=== PATIENT | male | born 1990 | race Asian ===

== ENCOUNTER → 2022-09-15 | Outpatient (CLI) | payer BC ==
--- NOTE | 2022-09-15 11:41 | MR ---
EXAMINATION TYPE: MR lumbar spine wo/w con DATE OF EXAM: 09/15/2022 COMPARISON: Outside institution MRI lumbar spine 06/01/2022, lumbar spine radiograph 08/07/2022. HISTORY: Low back pain x 9 months, Pain in buttocks into letha lower extremities TECHNIQUE: Multiplanar, multisequence images of the lumbar spine were acquired without and with 13 mL intravenou s Gadavist gadolinium contrast. Lumbar segments are intact. No paraspinal masses are identified. Conus medullaris has a normal appe arance. No abnormal contrast enhancement. L1-L2: Normal disc appearance without desiccation. No herniation, protrusion or disc bulging. No ca nal stenosis is present. Foramina are patent bilaterally. L2-L3: No disc desiccation. Broad-based disc bulge with mild effacement of the anterior thecal sac re demonstrated. No canal stenosis is present. Foramina are patent bilaterally. L3-L4: No disc desiccation. Central disc herniation with caudal extrusion of 3 mm redemonstrated with moderate effacement of the anterior thecal sac. Foramina are patent bilaterally. L4-L5: Disc desiccation is present. Broad-based disc bulge with minimal effacement of the anterior th ecal sac. Foramina are patent bilaterally. L5-S1: Disc desiccation is present. No herniation, protrusion or disc bulging. No canal stenosis is present. Foramina are patent bilaterally. IMPRESSION: 1. Similar L3-L4 central disc herniation with caudal extrusion of 3 mm resulting in moderate central canal stenosis. 2. Similar mild multilevel degenerative disc disease as described above.
== END | disposition home or self-care (01) ==
LOC: RADMRIMAIN 10:27
PROVIDERS: ATTEND Orthopaedic Surgery
DX: M51.26 Other intervertebral disc displacement, lumbar region (principal); M51.36 Other intervertebral disc degeneration, lumbar region; M48.061 Spinal stenosis, lumbar region without neurogenic claudication
CPT/HCPCS: 72158; A9585

== ENCOUNTER → 2022-10-02 | Outpatient (CLI) | payer BC ==
[2022-10-02 15:29] LABS: Basophils # (A) 0.01 X 10*3/uL (0.00-0.10); Basophils % (A) 0.1 %; Eosinophils % (A) 1.3 %; HCT 45.3 % (39.6-50.0); HGB 15.4 g/dL (13.0-17.0); Immature Grans, Automated 0.4 %; Lymphocytes # (A) 2.26 X 10*3/uL (0.90-5.00); Lymphocytes % (A) 28.5 %; MCH 29.2 pg (27.0-32.0); MCV 85.8 fL (80.0-97.0); Mean Platelet Volume 11.6 fL (9.5-12.2); Monocytes % (A) 6.3 %; NRBC Per 100 WBC 0 /100 WBCS (0.0-0.0); Neutrophils # (A) 5.02 X 10*3/uL (1.80-7.70); Neutrophils % (A) 63.4 %; Platelet Count 217 X 10*3/uL (140-440); RBC 5.28 X 10*6/uL (4.40-5.60); RDW 13.2 % (11.5-14.5); WBC 7.92 X 10*3/uL (4.50-10.00)
[2022-10-02 15:46] LABS: INR 0.91 (0.90-1.11); Prothrombin Time 10.3 sec (9.9-11.9)
[2022-10-02 16:04] LABS: African American GFR (CKD) 145.1 (60.0-200.0); Anion Gap 13.9 mmol/L (10.00-18.00); BUN/Creat Ratio 18.5 Ratio (12.00-20.00); Blood Urea Nitrogen 13.1 mg/dL (9.0-27.0); Calcium 10.1 mg/dL (8.7-10.3); Carbon Dioxide 25.5 mmol/L (20.0-27.5); Non-African American GFR(CKD) 125.2 (60.0-200.0); Potassium 4.4 mmol/L (3.5-5.5)
== END | disposition home or self-care (01) ==
LOC: LABPAT 10:19
PROVIDERS: ATTEND Orthopaedic Surgery
DX: Z01.812 Encounter for preprocedural laboratory examination (principal); M48.061 Spinal stenosis, lumbar region without neurogenic claudication; Z22.322 Carrier or suspected carrier of Methicillin resistant Staphylococcus aureus; M51.26 Other intervertebral disc displacement, lumbar region
CPT/HCPCS: 36415; 80048; 85025; 85610; 87070

== ENCOUNTER 2022-10-09 06:12 | Day surgery (SDC) | payer BC ==
[2022-10-03 14:50] VITALS: BMI 43.2
[~2022-10-09 06:12] MED LIST: ACETAMINOPHEN TAB 500 MG TAB PO PRN; GABAPENTIN 300 MG CAP PO PRN; ONDANSETRON 4 MG/2 ML VIAL IVP PRN; TRANEXAMIC ACID IN NACL,ISO-OS 1,000 MG in SALINE 1 100ML.BAG IVPB PRN; VANCOMYCIN 2,000 MG in SODIUM CHLORIDE 0.9% 500 ML 500 ML IVPB PRN
--- NOTE | 2022-10-09 07:10 | P.HPOR ---
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 No New xrays taken in office Trauma or injury No Work-Related No Pain description aching, increasing . Location posterior Patient notes that their pain radiates to bilateral lower extremities Activity Modification yes Hand Dominance right TREATMENTS COMPLETED: 6 weeks of PT completed? Month and Year of last PT date? No Patient has completed 3 weeks and was discharged due to no improvement and referred to our services by Dr. Lee Physician directed home exercise completed? No Medications yes List: Motrin, lyrica, ketorolac and medical marijuana Alternative interventions Chiropractic: No Massage therapy: No R.I.C.E: yes Brace: No Injections Yes How many? 07/03 at [facility] Did they help? No RFA: No SUBJECTIVE: Mr. Garcia presents to the office today for a pre operative evaluation. We had the chance to review his MRI results and have decided to pursue surgery. Patient agrees to this. Patient is still having pain and no changes since his last appointment. Overall the patient has seen a progressive increase in symptoms since their onset. Mr. Garcia symptoms are exacerbated with prolonged walking, standing, or performing stairs, due to this they notes that it is increasingly difficult for Mr. Garcia to complete many of their daily tasks. Patient is having moderate sleep disturbances as well due to their ongoing pain and associated symptoms. Regarding treatments, the patient has previously trialed the above listed modalities. Patient denies trialing any other modalities at this time. For their symptoms, the patient has been taking Motrin, lyrica, ketorolac and medical marijuana. Otherwise the patient denies any f/c/sob/cp, no bladder or bowel retention/incontinence, no perineal numbness/tingling, and ambulates independently. Mr. Garcia presents to the office on 09/13/22 for an evaluation of their low back pain. Patient reports a constant aching with intermittent sharp lumbar pain ongoing for a few years, but has progressed over the past 9 months with no known injury or trauma to indicate an exact onset of their symptoms. In addition to their lumbar pain, they do report that it radiates into the bilateral lower extremities, associatedwith numbness and tingling. Overall the patient has seen a progressive increase in symptoms since their onset. Mr. Garcia symptoms are exacerbated with prolonged walking, standing, or performing stairs, due to this they notes that it is increasingly difficult for Mr. Garcia to complete many of their daily tasks. Patient is having moderate sleep disturbances as well due to their ongoing pain and associated symptoms. Regarding treatments, the patient has previously trialed the above listed modalities. Patient denies trialing any other modalities at this time. For their symptoms, the patient has been taking Motrin, lyrica, ketorolac and medical marijuana. Otherwise the patient denies any f/c/sob/cp, no bladder or bowel retention/incontinence, no perineal numbness/tingling, and ambulates independently. The patients' past social, medical, family, surgical history, as well as review of systems, have been reviewed. Please refer to the Neurosurgery History and Physical form that has been scanned in to our electronic medical record system. 14 points review of systems completed and as stated in HPI, all other systems reviewed are negative. Social History: Reviewed, see appropriate section of the chart for details. P3 Family History: Reviewed, see appropriate section of the chart for details. P2 Past Medical History: Reviewed, see appropriate section of the chart for details. P1 Current Medications: Rx: Lyrica 150 mg capsule Ref: 0 Instructions: take 1 capsule (150 mg) by oral route 2 times per day Rx: marijuana , Ref: 0 Instructions: recreational nightly Rx: methylPREDNISolone 4 mg tablets in a dose pack Ref: 0 Instructions: take by oral route as directed per package instructions P1 PHYSICAL EXAMINATION: General: Awake, alert, appropriate for age, in no acute distress. HEENT: No unusual neck masses around region of lateral neck triangle, thyroid, supraclavicular groove Heart: Regular rate and rhythm, normal S1, S2 and no murmur/gallop. Lungs: Clear to auscultation bilaterally with no use of accessory muscles. Extremities: Skin warm and dry without acute lesions, coloration, temperature, skin intact, no tenderness or erythema Integument: Hairy patches: ABSENT Dorsal skin dimples: ABSENT Cafe au lait spots: ABSENT Surgical incisions: n/a Palpation: Please see Pain drawing on Intake sheet for further detail. Midline spinal tenderness: No E6 Cervical Tenderness: No E6 Paralumbar tenderness: No E6 Parathoracic tenderness: No E6 Buttocks tenderness: No E6 Sacroilliac Tenderness: No POSTURAL and MUSCULO-SKELETAL EVALUATION: Coronal Balance: NEUTRAL Recumbent testing: Patient is able to lay flat on back Sagittal Balance: NEUTRAL Shoulder Profile: LEVEL Pelvic Girdle: LEVEL Neck ROM: UNRESTRICTED Lumbar ROM: RESTRICTED Shoulder ROM: Symmetrical Hip ROM: Symmetrical Knee ROM: Symmetrical Hands: Normal appearance, symmetrical Feet: Normal appearance, Symmetrical VASCULAR STATUS : LEFT RIGHT Wrist Pulses INTACT INTACT Pedal Pulses (Dors. pedis & post.tibialis) INTACT INTACT Color NORMAL NORMAL Edema Absent Absent NEUROLOGIC EXAMINATION: Mental Status:Awake and alert, fully oriented, with normal attention, concentration and memory, and fluent, appropriate speech. Cranial Nerves: I: Olfactory not tested. II: Visual acuity normal, no visual field deficit noted with confrontation. III,IV: Normal pupillary reflexes & intact extraocular movements without nystagmus. V,: Intact symmetrical facial sensation. VII: Intact symmetrical facial motor movement VIII: Hearing intact. IX,X: Intact gag, swallow, & normal voice. XI: Sternocleidomastoid, trapezius function intact. XII: Tongue midline with normal movements. L'hermitte's Sign: Negative / absent Spurling'Sign: Absent bilaterally. Cubital percussion test: Absent bilaterally. Springer-Tinel sign - Carpal region: Absent bilaterally. Straight Leg Raising: Present bilaterally. Crossed straight leg raise: positive O8 patient displays tensioning signs MOTOR EXAM (0-5/5, N/T Muscle appearance: Symmetrical, without signs of atrophy or dystrophy UPPER EXTREMITY RIGHT LEFT Shoulder Abduction 5/5 5/5 Biceps 5/5 5/5 Triceps 5/5 5/5 Wrist Extension 5/5 5/5 Hand Intrnsics 5/5 5/5 Grease Buffer 5/5 5/5 Hand and finger dexterity intact bilaterally? yes Disdiadochokinesis examination negative bilaterally? yes LOWER EXTREMITY RIGHT LEFT Hip Flexion 4/5 4/5 Knee Extension 4/5 4/5 Knee Flexion 4/5 4/5 Dorsiflexion 4/5 4/5 Plantarflexion 4/5 4/5 EHL 4/5 4/5 FHL 4/5 4/5 Toe heel walk / heel-toe walk intact while maintaining satisfactory balance? yes Squatting/straightening w/o assistance to a min of 60 degree knee flexion? No Single leg stance: intact Trendelenburg sign positive to the left REFLEXES(0-4/2, NT)Upper Extremity Lower Extremity Right 2 2 Left 2 2 Pathological Reflexes RIGHT LEFT Springer's Absent Absent Clonus Absent Absent Babinski Absent Absent Sensory system (0-4, N/T) Test type RU LAINE RL LL Joint-Position 2 2 2 2 Vibration 2 2 2 2 Pain & LT sense 2 2 2 2 Dermatomal Deficit: None None None None Gait and Functional Evaluation: Ambulatory aids: Independent Romberg's test: Intact bilaterally Steady Gait RADIOGRAPHIC STUDIES: Lumbar MRI completed on 09/15/22: This shows L3-4 HNP with caudal extrusion causing moderate to severe stenosis at this level. There is spondylosis of the remaining levels without fracture or dislocation. XRay Lumbar Multiview (AP, Lateral, Flexion, Extension) with AP pelvis; 5 views taken at [facility] on 08/07/22: Moderate multilevel spondylitic and degenerative changes with flattening of the normal lordosis. Multilevel diminished disc height. Vertebral body heights are preserved. No acute osseous abnormalities. Pelvis: The visualized sacrum and iliac wings are within normal limits. Unbalanced pelvis to the left. [facility] images were essentially nondiagnostic and incomplete. There is likely a herniated nucleus pulposus at L3-L4 however this is difficult to determine secondary to the poor nature of this film. The new MRI is needed IMPRESSION: It was my pleasure to have seen and examined Nicholas. I reviewed the patient's clinical syndrome, physical findings, and imaging studies during the appointment today. It is my impression that the patient has a diagnosis of. 1. Lumbar spondylosis with stenosis 2.L3-4 HNP 3. L4-L5 bilateral foraminal stenosis 4. L5-S1 severe right foraminal stenosis 5. Bilateral lower extremity radiculopathy 6. Neurogenic claudication I outlined the natural course history without intervention and various interventional options. PLAN All options were reviewed today, we decided the best course of action would be: - Medrol dosepak sent to pharmacy today -Advised patient to continue with supplements, health maintenance, and home exercise programs. Patient expressed understanding and will continue with these modalities. - L3-4 microdiscectomy -Ambulate daily -Take pain medications and post op medications as needed and as directed -Ice and rest for pain and swelling control. Mr. Garcia is presenting for evaluation of low back pain. It was my pleasure to have seen and examined Mr. Garcia. In our visit today we have had a chance to go over subjective complaints, physical examination findings and treatments including the natural course history without intervention and various interventional options. The patients imaging demonstrates: Lumbar MRI completed on 09/15/22: This shows L3-4 HNP with caudal extrusion causing moderate to severe stenosis at this level. There is spondylosis of the remaining levels without fracture or dislocation. XRay Lumbar Multiview (AP, Lateral, Flexion, Extension) with AP pelvis; 5 views taken at [facility] on 08/07/22: Moderate multilevel spondylitic and degenerative changes with flattening of the normal lordosis. Multilevel diminished disc height. Vertebral body heights are preserved. No acute osseous abnormalities. Pelvis: The visualized sacrum and iliac wings are within normal limits. Unbalanced pelvis to the left. [facility] images were essentially nondiagnostic and incomplete. There is likely a herniated nucleus pulposus at L3-L4 however this is difficult to determine secondary to the poor nature of this film. The new MRI is needed -Continued symptoms despite exhaustive conservative management -Progressive symptoms of LE weakness that correlate with level of disease -Progressive symptoms of LE radiculopathy that correlate with level of disease -Dermatomal deficits and paresthesias L2-4 that correlate with imaging and findings -Normoreflexia -Neg springer's -No recent falls -Gait abnormalities related to pathology -Tensioning signs, Positive straight leg raise on the Left side with contralateral SLR + as well I have explained to the patient that as their condition progresses it will cause further neurological deficits and eventual paralysis. Based on the patients imaging, physical exam, and the rapid progression and disabling nature of their symptoms, at this time I recommend surgery in the form of a: L3-4 microdiscectomy I discussed the risk and benefits of this procedure at length with Mr. Garcia. The patient agreed to considered pursuing the procedure abovementioned. Prior to surgery, she should follow up with his PCP (Cardio, ID, IM etc) for clearance. Questions were invited and answered, and the patient wishes to proceed as outlined below. Currently, I am recommendin.L3-4 microdiscectomy 2.Follow up with PCP for surgical clearance 3.Review of surgical risks and benefits as well as an educational packet on the proposed surgical procedure. Risks: All surgical procedures come with inherent risks, including those related to positioning, anesthesia, intraoperative findings, and postoperative complications. It is important to understand that surgery does not come with any guarantee of a successful outcome as complications and adverse events are always possible. The patient was given a handout in office today discussing the surgical procedure and risks associated with the intervention, both of which were discussed with the patient. These risks include but are not limited to the following: * Experiencing same, different or even worse symptoms in back, neck, arms, or legs compared to before surgery. Requiring further surgery or other forms of treatment presently or at some time in the future at same or other levels of the intended spine surgery. On an extreme but fortunately relatively rare basis severe complication such as blindness, stroke, heart attack, temporary and/or permanent nerve injury, paralysis, coma, or may occur, sometimes without known explanation. Surgical complications may include but are not limited to risk of infection, fluid accumulation in the surgical dissection site, including a seroma or hematoma, that requires additional surgery, wound drainage, bleeding, new numbness or weakness, vision changes/loss, spinal fluid leakage, non-healing and/or infected incision, headaches, difficulty or inability to swallow, hoarseness, hemopneumothorax, pneumothorax, impotence, retrograde ejaculation, vaginal dryness; injury to nerves, spinal cord, blood vessels, lymphatics or other vital organs (i.e., bowel injury, injury to the great vessels); heterotopic bone formation; complications related to the hardware such as screws, rods, cages including misplaced hardware, device failure, instrumentation at the wrong spine level, hardware fracture/breakage, or hardware loosening; vertebral failure of the spinal column above or below the newly placed hardware; retained surgical instrumentations or devices and the need for further surgery. * Medical risks of the planned spine surgery include but are not limited to generalized Infections to the whole body or local areas outside of the surgical site (sepsis), heart attack, bleeding, anaphylaxis, meningitis, seizure, epilepsy, hearing loss, burn cardona, laceration of the head or other areas of the body, bruising, hypersensitivity of the skin, bladder over distension; allergic reaction; shoulder injury related to positioning; fat, blood and air clots to other areas of the body like heart, lungs, brain; failure of internal organs such as lungs, kidneys, liver and excessive bleeding. If blood transfusions are necessary, note that transfusions may cause intolerance reactions such as anaphylaxis or other complex reactions. Despite best efforts, the results of spine surgery might not heal in terms of bone, soft tissues such as skin, fascia, ligaments, and joints. Additionally, in order to achieve best possible results, spine surgery may be carried out beyond the initially planned levels and involve decompression, fusion including insertion of hardware at levels other than the original intended area of surgical interest change some portions of the procedure in order to ensure the best possible outcomes. With spine surgery and spinal fusion, there are different off label uses of instrumentation (devices, implants and hardware) as well as biological substances (bone morphogenic proteins, demineralized bone matrix) as well as using extra bone from allograft sources (i.e. cadaver bone) or autograft (iliac crest bone, ribs, or the spine itself). The patient has been given information about these practices and their inherent risks and benefits. [facility] is an educational center that serves as a training facility for neurosurgical and orthopedic ENGLISH TUTOR and Nursing students. Physician assistants are medically trained surgical providers who function in the outpatient, inpatient, and operating room setting under the direct supervision of the attending surgeon. [facility] has multiple operating rooms with single and overlapping rooms running daily. They currently function under the required guidelines as produced by the [facility] Finance Committee with regards to the overlapping rooms and will continue to comply with changes to this policy as they occur. The requirements include and are complied with as follows: (1) the critical portions of the overlapping rooms will not occur at the same time, (2) the attending physician will be physically present during the critical portions of the procedure and immediately available during the entire case, and (3) a back-up attending is designated should the primary attending not be immediately available. The patient has had a chance to review all the listed information, has been given print outs detailing this information, and has had all his/her questions answered to their satisfaction. It was my pleasure to have seen and examined Mr. Garcia. In our visit today we have had a chance to go over my understanding of our patient's current condition, the natural course history without intervention and various interventional options. Questions were invited and answered, and the patient wishes to proceed as outlined above. I have seen and examined the patient for 25 minutes and we have spent more than 50% of the time in repeat and detailed counseling about the patient's condition, its natural course history with out and as much as can be predicted with surgery and re-review of various surgical treatment options. In conclusion, Mr. Garcia requested we proceed with the above suggested surgery and are willing to accept risks and limitations of the suggested surgery as nature of the disease process and our best attempts at treatment for the condition. Thank you again for allowing us to be part of your patient's care. Please don't hesitate to contact me if you have any further questions. FOLLOW-UP post operation Pt Education (Informational booklet, instructions, etc) given at today's appointment: Yes .ED:Patient Education: Y Medications Reviewed: YES Attestation: In our visit today Mr. Garcia and I have had a chance to go over my understanding of the patient's current condition, the natural course history without intervention and various interventional options. Questions were invited and answered, and the patient wishes to proceed as outlined above. I will be sure to keep you updated afterMr. Garcia returns here for further follow-up. Thank you again for your referral. Please do not hesitate to contact me if you have any further questions. Signed and authenticated by: Micky Jarrell [facility] [address] [place] [id number] This message is confidential, intended only for the named recipient(s) and may contain information that is privileged or exempt from disclosure under applicable law. If you are not the intended recipient(s), you are notified that the dissemination, distribution or copying of this information is strictly prohibited. If you received this message in error, please notify the sender then delete this message. Patient verbalizes understanding of the information discussed. The above note was initiated by Sraahy Fowler, physician recording licensed loan officer assistant for Dr. Micky Romano. This note has been reviewed by Dr. Romano, who has made his personal changes and impressions for this document CC: No PCP # SIGNED BY Micky Romano (GOO)10/04/2022 09:24AM Past Medical History Past Medical History: No Reported History History of Any Multi-Drug Resistant Organisms: None Reported Past Surgical History: Adenoidectomy Past Anesthesia/Blood Transfusion Reactions: No Reported Reaction Past Psychological History: No Psychological Hx Reported Smoking Status: Never smoker Past Alcohol Use History: None Reported Past Drug Use History: Marijuana Additional Drug Use History / Comment(s): Marijuana use nightly. Aware no use 24 hrs prior to procedure. - Past Family History Mother Family Medical History: No Reported History Medications and Allergies Home Medications Medication Instructions Recorded Confirmed Type Pregabalin 200 mg PO TID 10/03/22 10/03/22 History Allergies Allergy/AdvReac Type Severity Reaction Status Date / Time No Known Allergies Allergy Verified 10/09/22 06:59 Physical Examination Osteopathic Statement: *. No significant issues noted on an osteopathic structural exam other than those noted in the History and Physical/Consult.
[2022-10-09 07:15] VITALS: RESP 16; TEMP 98.1
[2022-10-09] MEDS ORDERED: LACTATED RINGERS 1,000 ML IV ONE ×2 (07:40)
--- NOTE | 2022-10-09 07:57 | P.HPIM ---
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 He does not have a PCP and is in need of preoperative clearance. We had a phone conversation prior to his arrival to Pre-OP today for screening questions. Patient seen and examined at bedside. He has been having low back pain for the last 10 months. He has no know past medical history. No history of chest pain, shortness of breath, or fainting over the last 6 months. Able to climb up a flight of stairs without chest pain or shortness of breath. Able to walk 2 city blocks without chest pain or shortness of breath. Independent in ADL and IADLS. Works at the [employer]. Vital signs reviewed General: nontoxic, no distress, appears at stated age Derm: warm, dry Eyes: EOMI, no lid lag, anicteric sclera, pupils equal round reactive to light ENT: Nose and ears atraumatic, no thrush, no pharyngeal erythema Cardiovascular: S1S2 reg, no murmur, positive posterior tibial pulse bilateral, trace edema, capillary refill less than 2 seconds Lungs: clear to auscultation bilateral, diminished breath sounds, no rhonchi, no rales, no wheeze, no accessory muscle use Abdominal: soft, nontender to palpation, no guarding, no appreciable or ganomegaly, normal bowel sounds Ext: no gross muscle atrophy, no contractures Neuro: CN II-XII grossly intact, light touch intact all 4 extremities, finger to nose within normal limits, Psych: Alert, oriented, appropriate affect Assessment: Patient is a 31 yo male here for L3-4 Microdiscectomy - Patient is able to preform greater than 4 mets without any anginal equivalents. Lab work is remarkable for mildly elevated glucose. He is at acceptable risk for surgery. He does not require any additional testing and is medically optimized for the proposed procedure Imaging: None for review Data Review: Laboratory analysis reviewed. Hemoglobin 15.4, hematocrit 45.3, platelets 217, sodium 141, potassium 4.1, BUN 13, creatinine 0.71, glucose 167, INR 0.91. Plan: - medically optimized for surgery. - Should establish with a PCP on an outpatient basis Thank you for allowing us to participate in the care of this pleasant patient. Do not hesitate to contact us with questions. Someone can be reached from the [facility] hospitalist group all hours of the day at [phone] or via [employer]. This dictation was prepared using [employer] voice recognition software. Though every attempt is made to correct errors during during dictation some may still exist. Past Medical History Past Medical History: No Reported History History of Any Multi-Drug Resistant Organisms: None Reported Past Surgical History: Adenoidectomy Additional Past Surgical History / Comment(s): septum realigned Past Anesthesia/Blood Transfusion Reactions: No Reported Reaction Past Psychological History: No Psychological Hx Reported Smoking Status: Never smoker Past Alcohol Use History: None Reported Past Drug Use History: Marijuana Additional Drug Use History / Comment(s): Marijuana use nightly. Aware no use 24 hrs prior to procedure. - Past Family History Mother Family Medical History: No Reported History Medications and Allergies Home Medications Medication Instructions Recorded Confirmed Type Pregabalin 200 mg PO TID 10/03/22 10/03/22 History Ibuprofen [Motrin] 800 mg PO TID PRN 10/09/22 10/09/22 History Allergies Allergy/AdvReac Type Severity Reaction Status Date / Time No Known Allergies Allergy Verified 10/09/22 06:59 Physical Exam Osteopathic Statement: *. No significant issues noted on an osteopathic structural exam other than those noted in the History and Physical/Consult. Vitals: Vital Signs Temp Pulse Resp BP Pulse Ox 10/09/22 07:13 98.1 F 100 16 169/91 99 Intake and Output 10/08/22 10/09/22 10/09/22 22:59 06:59 14:59 Other: Weight 136.4 kg Thrombosis Risk Factor Assmnt - Choose All That Apply Each Factor Represents 1 point: Obesity (BMI >25) Other Risk Factors: Yes Each Risk Factor Represents 2 Points: Major surgery Other congenital or acquired thrombophilia - If yes, enter type in comment: No Thrombosis Risk Factor Assessment Total Risk Factor Score: 3 Thrombosis Risk Factor Assessment Level: Moderate Risk
[2022-10-09] MEDS ORDERED: PHENYLEPHRINE-0.9% NACL SYG 1,000 MCG/10 ML SYRINGE ONE (08:22)
[2022-10-09] MEDS ORDERED: GLYCOPYRROLATE 0.2 MG/ML 2 ML VIAL ONE (08:22)
[2022-10-09] MEDS ORDERED: NEOSTIGMINE 1 MG/ML 10 ML VIAL ONE (08:22)
[2022-10-09] MEDS ORDERED: MIDAZOLAM 2 MG/2 ML VIAL ONE (08:22)
[2022-10-09] MEDS ORDERED: LIDOCAINE 2% INJ 20 MG/ML (2 ML VIAL) ONE (08:22)
[2022-10-09] MEDS ORDERED: PROPOFOL 10 MG/ML 20 ML VIAL IV ONE (08:22)
[2022-10-09] MEDS ORDERED: ROCURONIUM 10 MG/ML (5 ML VIAL) IV ONE (08:22)
[2022-10-09] MEDS ORDERED: TRANEXAMIC ACID IN NACL,ISO-OS 1,000 MG/100 ML BAG ONE (08:22)
[2022-10-09] MEDS ORDERED: KETAMINE 10 MG/ML 20 ML VIAL ONE (08:22)
[2022-10-09] MEDS ORDERED: SUCCINYLCHOLINE CHLORIDE 200 MG/10 ML VIAL IV ONE (08:22)
[2022-10-09] MEDS ORDERED: fentaNYL (PF) 50 MCG/ML 2 ML AMP ONE (08:22)
[2022-10-09] MEDS ORDERED: GELATIN SPONGE,ABSORB (LARGE) 1 EACH SPONGE TOPICAL ONE (09:15)
[2022-10-09] MEDS ORDERED: THROMBIN (BOVINE) 5,000 UNIT VIAL TOPICAL ONE (09:15)
[2022-10-09] MEDS ORDERED: HYDROmorphone 1 MG/ML 1 ML SYRINGE IVP PRN (11:23)
[2022-10-09] MEDS ORDERED: SENNOSIDES-DOCUSATE SODIUM 1 EACH TAB PO PRN (11:23)
[2022-10-09] MEDS ORDERED: HYDROcodone/APAP 5-325MG 1 EACH TAB PO PRN (11:23)
[2022-10-09] MEDS ORDERED: MAGNESIUM HYDROXIDE 2,400 MG/10 ML CUP PO PRN (11:23)
[2022-10-09] MEDS ORDERED: CYCLOBENZAPRINE 5 MG TAB PO PRN (11:23)
[2022-10-09] MEDS ORDERED: HYDROcodone/APAP 10-325MG 1 EACH TAB PO PRN (11:23)
[2022-10-09] MEDS ORDERED: HYDROmorphone 0.5 MG/0.5 ML SYRINGE IVP PRN (11:23)
[2022-10-09] MEDS ORDERED: HYDROmorphone 0.5 MG/0.5 ML SYRINGE IVP ONE ×2 (11:41→11:49)
--- NOTE | 2022-10-09 11:43 | FL ---
EXAMINATION TYPE: FL guidance operating room, XR lumbar spine 2 or 3V DATE OF EXAM: 10/09/2022 CLINICAL HISTORY: Low back pain. Spinal stenosis. TECHNIQUE: Fluoroscopy. Intraoperative 2 views lumbar spine. COMPARISON: None. FINDINGS: Fluoroscopic guidance was provided during low back surgical procedure performed by Dr. Julien eid. A total of 8 seconds of fluoroscopic time was utilized during the procedure and 5 spot imag es was acquired. Total dose area product (DAP) in uGy*m?, mGy*cm? (or similar: 4.8921. Images acquired show posterior opening and advancement of surgical devices at the L4 level. IMPRESSION: As Above.
[2022-10-09] MEDS ORDERED: ACETAMINOPHEN TAB 325 MG TAB PO SCH (12:00)
[2022-10-09 14:02] VITALS: BP 144/76; PULSE 105
[2022-10-09] MEDS ORDERED: ceFAZolin 3 GM in SODIUM CHLORIDE 0.9% 100 ML IVPB SCH (16:00)
--- NOTE | 2022-10-09 17:23 | P.OP ---
Date of Procedure: 10/09/22 Preoperative Diagnosis: 1. L3-4 HNP with stenosis 2. LE radiculopathy 3. Low back pain 4. LE weakness Postoperative Diagnosis: 1. L3-4 HNP with stenosis 2. LE radiculopathy 3. Low back pain 4. LE weakness Procedure(s) Performed: 1. Bilateral hemilaminotomy, partial medial facetectomy and microdiscectomy (91581/50) Use of IO microscope Implants: None Anesthesia: GETA Surgeon: Micky Romano Ear Nose Throat Surgeon #1: Juan Dixon (Was present and assisted with all aspects of the case from positioning to dressing placement. ) Estimated Blood Loss (ml): 50 IV fluids (ml): 1,500 Urine output (ml): 0 Pathology: none sent Condition: stable Disposition: PACU Indications for Procedure: Mr. Garcia is presenting for evaluation of low back pain. It was my pleasure to have seen and examined Mr. Garcia. In our visit today we have had a chance to go over subjective complaints, physical examination findings and treatments including the natural course history without intervention and various interventional options. The patients imaging demonstrates: Lumbar MRI completed on 09/15/22: This shows L3-4 HNP with caudal extrusion causing moderate to severe stenosis at this level. There is spondylosis of the remaining levels without fracture or dislocation. XRay Lumbar Multiview (AP, Lateral, Flexion, Extension) with AP pelvis; 5 views taken at [facility] on 08/07/22: Moderate multilevel spondylitic and degenerative changes with flattening of the normal lordosis. Multilevel diminished disc height. Vertebral body heights are preserved. No acute osseous abnormalities. Pelvis: The visualized sacrum and iliac wings are within normal limits. Unbalanced pelvis to the left. [facility] images were essentially nondiagnostic and incomplete. There is likely a herniated nucleus pulposus at L3-L4 however this is difficult to determine secondary to the poor nature of this film. The new MRI is needed -Continued symptoms despite exhaustive conservative management -Progressive symptoms of LE weakness that correlate with level of disease -Progressive symptoms of LE radiculopathy that correlate with level of disease -Dermatomal deficits and paresthesias L2-4 that correlate with imaging and findings -Normoreflexia -Neg antony's -No recent falls -Gait abnormalities related to pathology -Tensioning signs, Positive straight leg raise on the Left side with contralateral SLR + as well I have explained to the patient that as their condition progresses it will cause further neurological deficits and eventual paralysis. Based on the patients imaging, physical exam, and the rapid progression and disabling nature of their symptoms, at this time I recommend surgery in the form of a: L3-4 microdiscectomy I discussed the risk and benefits of this procedure at length with Mr. Garcia. The patient agreed to considered pursuing the procedure abovementioned. Prior to surgery, she should follow up with his PCP (Cardio, ID, IM etc) for clearance. Questions were invited and answered, and the patient wishes to proceed as outlined below. Currently, I am recommendin.L3-4 bilateral hemilaminotomy with microdiscectomy Description of Procedure: L3-4 Microdisc The patient was seen and examined in the preoperative area. All preoperative protocols were followed. Informed consent was obtained, risks and benefits of the procedure were discussed at length. Risks including bleeding infection damage to the surrounding tissue and risk of re-operation were discussed with the patient. Risk of anesthesia up to and including was discussed with the patient. These are outlined in the risk review. They were willing to accept these risks and all the risks of surgery. The patient was given a weight-based dose of antibiotics in the form of 3 g Ancef. The patient was seen and evaluated by the anesthesia team who deemed them fit for surgery. The site was marked, the patient was willing to proceed with the procedure. The patient was transferred to the operative suite by the Department of anesthesia. They were then drifted off to sleep by the department anesthesia and GETA was performed. The patient tolerated this well. Once confirmation of lines and ventilation the patient was transferred to a prone Nicolas table very carefully. All bony prominences including wrists, elbows, axilla, chest, hips, and thighs, and feet were padded very well. Special attention was paid to the genitalia, and these were padded accordingly. SCDs were placed on bilateral lower extremities and were connected. Arms were well padded and placed on arm boards up and out in the 90/90 position. Once in position, again we confirmed good ventilation capabilities and that lines were running appropriately. The patients Lumbar spine was then exposed. 1010s were placed outlining the incision site. Standard alcohol was used to clean the incision site and allowed to dry. C-arm was used to needle localize the pedicles at L3-4 and bio-sascha the patient and confirm level for incision which was marked with a skin marker. Operative briefing was performed with all teams and everyone in agreement to proceed. The patient was then prepped and draped in a normal sterile fashion. Timeout was then performed, and all parties agreed with the procedure to be performed. Skin incision was made over the previously marked area and dissection taken down to the deep facia which was split bilateral just off midline for a midline sparing approach. Subperiosteal dissection was then taken down the lamina over the facet joints and identifying the pars at L3. [place] 4 was placed at the level of the pars of L3 and a lateral image taken to confirm operative level. Retractors were then placed. Microscope was then brought in for visualization. Varinder-laminotomy, partial medial facetectomy and foraminotomy were performed at L3-4 bilaterally using high speed crispin and Kerrison rongure. The ligamentum flavum was removed with Kerrison and curette. Dura and roots protected. The disc space was identified along with the herniation which was more prominent on the right side. 11 blade was used to make small annulotomy and micro-pituitary used to remove loose disc fragments. Once fragments were removed, down biting curette was used to push any medial fragments down and towards the annulotomy and decompress centrally. The disc space was irrigated, and any loose fragments removed again. Bipolar was used for hemostasis and scarring of the annulotomy. The area was irrigated, and meticulous hemostasis performed. The bed was inspected, and all roots have ample room and are decompressed along with the dura. There were no injuries. Retractors were then removed. The wound was copiously irrigated with NSS. The deep fascia was closed with #1 PDS. Deep sub-q with 0 Vicryl and superficial with 2-0 Vicryl. Subcuticular was closed with 3-0 stratafix. The wound edges approximated well. The wound was then cleaned, and glue tape placed on the skin and allowed to dry. It was then Covered with an Opifoam dressing. The patient was then transferred off the table back to their hospital bed a- traumatically. They were extubated by the department of anesthesia. They were then transferred to PACU in stable condition having tolerated the procedure with no complications.
== END 2022-10-09 14:14 | disposition home or self-care (01) ==
LOC: OR 06:12 → EDSTATUS 10:15 → OR 14:14
PROVIDERS: ATTEND Orthopaedic Surgery
DX: M51.16 Intervertebral disc disorders with radiculopathy, lumbar region (principal); M48.061 Spinal stenosis, lumbar region without neurogenic claudication; F12.90 Cannabis use, unspecified, uncomplicated; Z90.89 Acquired absence of other organs; Z79.1 Long term (current) use of non-steroidal anti-inflammatories (NSAID); Z79.899 Other long term (current) drug therapy
CPT/HCPCS: 86900; 86901; 86850; 72100; 63030; C1762; J2250; J3370; J0330; J2710; J2405; J3010; J2370; J2704; J1170; J2001

== ENCOUNTER → 2023-02-19 | Outpatient (CLI) | payer BC ==
--- NOTE | 2023-02-19 20:22 | MR ---
EXAMINATION TYPE: MR lumbar spine wo con DATE OF EXAM: 02/19/2023 7:52 PM CLINICAL INDICATION:Male, 32 years old with history of M54.12low back pain; Low back pain into the le ft leg, post laminectomy surgery. COMPARISON: 09/15/2022 TECHNIQUE: Multi planar, multi sequence imaging was performed utilizing: T1-nader ghted, T2-weighted, and turbo inversion recovery imaging of the lumbar spine. IV Contrast: None. FINDINGS: Alignment: The lumbar vertebral bodies have preserved heights and alignment. Cord: The conus medullaris and the distal spinal cord appear unremarkable with regards to their signa l intensity and morphology. Bones/Discs: Degeneration changes with scattered small Schmorl's nodes osteophytes and facet joint ar thropathy. Disc desiccation is present. T12-L1: No evidence of significant spinal canal stenosis or neural foraminal stenosis. L1-L2: No evidence of significant spinal canal stenosis or neural foraminal stenosis. L2-L3: Disc bulge and facet joint arthropathy result in mild spinal canal and mild bilateral neural f oraminal stenosis. L3-L4: Interval progression/worsening of left central disc extrusion with severe spinal canal stenosi s. [id number] bilateral neural foraminal stenosis. Series 601 image 13. This displaces multiple nerve roots in the spinal canal. There appears to be more disc material within the spinal canal on t roger's exam with superior migration of disc material up to 4 mm and inferior migration of 5 mm. L4-L5: Disc bulge with superimposed protrusion without significant spinal canal stenosis. There is mi ld bilateral neural foraminal stenosis. L5-S1: The disc is rounded posterior morphology without significant spinal canal stenosis. Facet join t arthropathy with mild neural foraminal stenosis. No significant spinal canal or neural foraminal stenosis in the remainder of the visualized levels. Other findings: None. IMPRESSION: L3-L4 Interval worsening/progression of left central disc extrusion with severe spinal canal stenosis . There is more dense material within the spinal canal in today's exam with superior migration of dis c material up to 4 mm and inferior migration of 5 mm.
== END | disposition home or self-care (01) ==
LOC: RADMRIMAIN 19:02
PROVIDERS: ATTEND Nurse Practitioner Family
DX: M51.16 Intervertebral disc disorders with radiculopathy, lumbar region (principal); M48.061 Spinal stenosis, lumbar region without neurogenic claudication
CPT/HCPCS: 72148

== ENCOUNTER → 2023-05-16 | Outpatient (CLI) | payer BC ==
[2023-05-16 21:04] LABS: Basophils # (A) 0.01 X 10*3/uL (0.00-0.10); Basophils % (A) 0.1 %; Eosinophils # (A) 0.06 X 10*3/uL (0.04-0.35); Eosinophils % (A) 0.8 %; HGB 15.6 g/dL (13.0-17.0); Lymphocytes % (A) 29.2 %; MCH 28.6 pg (27.0-32.0); MCHC 33.9 g/dL (32.0-37.0); MCV 84.2 FL (80.0-97.0); Mean Platelet Volume 11.2 FL (9.5-12.2); Monocytes # (A) 0.43 X 10*3/uL (0.20-1.00); Monocytes % (A) 5.4 %; NRBC Per 100 WBC 0 X 10*3/uL (0.00-0.01); Neutrophils # (A) 5.07 X 10*3/uL (1.80-7.70); Neutrophils % (A) 64.2 %; Platelet Count 277 X 10*3/uL (140-440); RBC 5.46 X 10*6/uL (4.40-5.60); RDW 13.4 % (11.5-14.5); WBC 7.89 X 10*3/uL (4.50-10.00)
[2023-05-16 21:53] LABS: ALT 49 U/L (10-49); AST 27 U/L (14-35); Albumin 5.1 g/dL (3.8-4.9); Albumin/Globulin Ratio 1.96 Ratio (1.60-3.17); Alkaline Phosphatase 57 U/L (41-126); BUN/Creat Ratio 23.71 Ratio (12.00-20.00); Blood Urea Nitrogen 16.6 mg/dL (9.0-27.0); Calcium 10.4 mg/dL (8.7-10.3); Carbon Dioxide 23.6 mmol/L (21.6-31.8); Chloride 103 mmol/L (96-109); Chol/HDL Ratio 5.22 Ratio; Globulin 2.6 g/dL (1.6-3.3); Glucose 102 mg/dL (70-110); LDL Cholesterol,Calculated 178.8 mg/dL (0.0-131.0); Potassium 4.4 mmol/L (3.5-5.5); Sodium 139 mmol/L (135-145); Total Bilirubin 0.6 mg/dL (0.3-1.2); Total Protein 7.7 g/dL (6.2-8.2); VLDL Calculation 18.54 mg/dL (5.00-40.00)
== END | disposition home or self-care (01) ==
LOC: LABWHC1 13:28
PROVIDERS: ATTEND Family Medicine
DX: Z00.00 Encounter for general adult medical examination without abnormal findings (principal); Z11.59 Encounter for screening for other viral diseases
CPT/HCPCS: 36415; 80053; 80061; 84443; 85025; 86803